=== PATIENT | female | born 1990 | race Caucasian/White ===

== ENCOUNTER → 2018-10-04 12:59 | Outpatient (CLI) | payer OTHER, SELFPAY ==
--- NOTE | 2018-10-04 13:01 | DI.US.S_ITS ---
ULTRASOUND OF LEFT BREAST: 10/04/2018 CLINICAL: Palp lump lt breast @2:00. No prior exams were available for comparison. Color flow and real-time ultrasound of the left breast were performed by both the senior account director and radiologist. Torres scale images of the real-time examination were reviewed. No abnormalities were seen sonographically in the left breast. Area of palpable concern at the 2:00 o'clock position correlated with a normal ridge of dense fibroglandular tissue. No mass or disturbed parenchymal echotexture. IMPRESSION: NEGATIVE There is no sonographic evidence of malignancy. There is no abnormality seen in the left breast to correspond with the area of clinical concern and palpable abnormality at 2 o'clock which is consistent with normal fibroglandular tissue. This exam was interpreted at Station ID: [id number]. SUMMARY: Findings and recommendations were discussed with the patient during today's visit. Recommend clinical follow up for persistent symptoms. Electronically Signed By: Immanuel Hayward M.D. at/:10/04/2018 18:26:33 letter sent: Normal Exam Ultrasound BI-RADS: 1 Negative
== END ==
PROVIDERS: Family Provider Specialist; PCP Family Medicine; Visit Provider Family Medicine
DX: N64.4 Mastodynia (principal); N63.21 Unspecified lump in the left breast, upper outer quadrant
CPT/HCPCS: 76642

== ENCOUNTER → 2018-10-13 13:49 | Outpatient (CLI) | payer OTHER, SELFPAY ==
--- NOTE | 2018-10-13 13:50 | DI.MG.S_ITS ---
UNILATERAL LEFT DIGITAL DIAGNOSTIC MAMMOGRAM 3D/2D: 10/13/2018 CLINICAL: Palpable left breast lump. Comparison is made to exam dated: 10/04/2018 [facility]. The tissue of left breast is heterogeneously dense. This may lower the sensitivity of mammography. No significant masses, calcifications, or other findings are seen in the left breast. IMPRESSION: NEGATIVE There is no abnormality seen in the left breast to correspond with the palpable abnormality at 2 o'clock in the anterior depth. Mammographic findings are consistent with normal fibroglandular tissue, however, clinical followup is recommended. An ultrasound for this abnormality has been performed recently and was also negative. There is no mammographic evidence of malignancy. Findings and recommendations were conveyed to the patient at time of exam. This exam was interpreted at Station ID: [id number]. NOTE: For mammograms, a report in lay terms will be sent to the patient. Approximately 15% of breast malignancies will not be visualized mammographically. In the management of a palpable breast mass, a negative mammogram must not discourage biopsy of a clinically suspicious lesion. Electronically Signed By: Annette velazco/:10/13/2018 14:42:13 letter sent: Clinical Evaluation ACR BI-RADS Category 1: Negative [id number]
== END ==
PROVIDERS: Family Provider Specialist; PCP Family Medicine; Visit Provider Family Medicine
DX: N63.21 Unspecified lump in the left breast, upper outer quadrant (principal)
CPT/HCPCS: 77065; G0279

== ENCOUNTER 2021-05-31 14:36 | Emergency (ER) | payer OTHER, SELFPAY ==
--- NOTE | 2021-05-31 15:18 | DI.RAD.S_ITS ---
PROCEDURE: XR HAND RT MIN 3V INDICATIONS: Injury TECHNIQUE: 3 views of the hand(s) acquired. COMPARISON: None. FINDINGS: Bones: No fractures or dislocations. Carpal bones are normally aligned. No suspicious bony lesions. Soft tissues: No suspicious soft tissue calcifications. IMPRESSION: No displaced fractures are seen on these plain films. If there is focal tenderness, or other clinical concern for a fracture not seen on these images in this patient with a given history of trauma, please consider a dedicated CT or a short-term followup plain film series (in 1-2 weeks) for further evaluation. Dictated by: Isaias Phillips M.D. on 05/31/2021 at 15:02 Approved by: Isaias Phillips M.D. on 05/31/2021 at 15:03
[2021-05-31 15:19] VITALS: BP 132/73; PULSE 90; RESP 18; TEMP 37.4; O2SAT 99
== END 2021-05-31 17:04 | disposition left against medical advice (07) ==
PROVIDERS: Emergency Provider Emergency Medicine; Family Provider Specialist; PCP Family Medicine
DX: Z53.21 Procedure and treatment not carried out due to patient leaving prior to being seen by health care provider (principal)
CPT/HCPCS: 73130; 99283

== ENCOUNTER 2023-02-22 06:38 | Day surgery (SDC) | payer OTHER, SELFPAY ==
[2023-02-16 16:50] VITALS: BMI 25.3
--- NOTE | 2023-02-22 | PATH_ITS ---
[facility] Accession Number: [id number] No. of containers..01 Tissue . 01 Material submitted: . fallopian tube - BILATERAL FALLOPIAN TUBES . 01 Diagnosis: Bilateral Fallopian Tubes, Bilateral Salpingectomy: Bilateral fallopian tubes without pathologic abnormalities. Negative for atypia and malignancy. [facility] 02/25/2023 1421 Local . 01 Electronically signed: . Mian Rangel MD, Pathologist NPI- [id number] . 01 Gross description: . The specimen is received in formalin labeled with the patient's name, , and bilateral fallopian tubes, consists of two unoriented fimbriated fallopian tubes measuring 6.4 x 0.4 cm and 5.8 x 0.5 cm, respectively. Both tubes have violaceous smooth serosa with no cystic structures identified. Sectioning reveals an unremarkable stellate lumen. Technical Services Librarian sections to include one-half of bisected fimbriae and cross-sections are submitted in two blocks, A1-A2. ([id number]) /[facility] 02/25/2023 1413 Local . 01 Pathologist provided ICD-10: Z30.2, Z30.432 . 01 CPT . 307310 Specimen Comment: A courtesy copy of this report has been sent to [phone] Performed at: 01 [facility] [address] [place] [address], [place], [place] [id number] MD Reinier Rivera MD Phone: [phone]
--- NOTE | 2023-02-22 07:09 | P.HPOB_ITS ---
History of Present Illness History of Present Illness Reason for admission: other (Sterilization) Narrative: Tahira Stewart is a 32 year old 3 para 1 admitted for laparoscopic bilateral salpingectomies for sterilization and removal of Mirena IUD. Patient is aware of all control options and is requesting bilateral salpingectomies for permanent sterilization and removal of Mirena IUD. [facility] Medical History (Updated 02/22/23 @ 07:10 by Radha Ayala MD) Anemia Delivery by section of full-term Gestational hypertension w/o significant proteinuria in 3rd trimester History of gestational hypertension Surgical History (Updated 01/14/18 @ 21:25 by Leslie Hodge) Anesthesia History of third molar tooth extraction History of tonsillectomy (~1994) Status post delivery (10/23/15) Family History (Updated 01/14/18 @ 21:27 by Leslie Hodge) Father Hypertension Mother Hypertension Lupus Grandmother Diabetes mellitus Hypertension Social History marital status: household members: spouse pets and animals: Yes education level: high school seatbelt use: always helmet use: Yes water heater temp set < 120 deg: Yes working smoke detector in home: Yes fire extinguisher in home: Yes carbon monox detector in home: Yes firearms in home: No Smoking Status: Never smoker alcohol intake: current during the past year weight has: remained stable well-balanced diet: daily or most days daily servings fruits/ve-4 eating out: rarely or never Type(s) of exercise: walking, swimming and additional frequency: daily Meds Home Medications and Allergies Home Medications Medication Instructions Recorded Confirmed Type levonorgestrel 21 mcg/24 hours (8 intrauterine 08/16/20 10/21/22 History yrs) 52 mg intrauterine device (Mirena) Allergies Allergy/AdvReac Type Severity Reaction Status Date / Time shellfish derived Allergy Unknown facial/tongue Verified 10/21/22 10:34 [SHELLFISH DERIVED] swelling Review of Systems Review of Systems ROS: Yes All systems reviewed with the patient and are negative except as otherwise documented Exam Narrative Exam Narrative: HEENT exam within normal limits. Lungs are clear to auscultation percussion. Heart is regular rate and rhythm no S3-S4 murmurs. Abdomen is soft, nontender with no palpable organomegaly. Extremities without edema and nontender Assessment & Plan Assessment and plan (1) Encounter for sterilization: Status: Acute Assessment & Plan narrative: Patient requesting laparoscopic bilateral salpingectomy for sterilization with removal Mirena IUD. Consent form signed. Risks of reaction to medication or anesthesia, minimal risk of infection or bleeding, minimal risk of damage to internal structures such as bowel, bladder, ureters that could require opening the abdomen to repair or additional surgery. Patient is aware she will no longer be able to have children after this procedure. Consent form signed and questions answered. Time Spent With Patient Time with patient: less than 30 minutes
[2023-02-22 07:18] VITALS: BP 116/72; PULSE 72; RESP 16; TEMP 36.6; O2SAT 98; BMI 25.3
[2023-02-22] MEDS: LACTATED RINGERS 1,000 ML 100 ML IV (07:24)
[2023-02-22] MEDS: SCOPOLAMINE 1 PATCH TOP (07:27)
--- NOTE | 2023-02-22 07:31 | PM.PREOP ---
Pre-operative Note Interval Note History & Physical reviewed/Exam performed by Physician: Yes Changes to H&P: No
--- NOTE | 2023-02-22 08:11 | SUR.OPER ---
Lithotomy on padded OR bed, head on pillow, arms secured on padded arm boards at <90 degrees abduction. Legs secured in padded yellow fins stirrups.
[2023-02-22] MEDS: BUPIVACAINE 0.5% (PF) 30 ML, EPINEPHrine 0.15 MG INJ (08:16)
[2023-02-22] MEDS: ACETAMINOPHEN IV 1,000 MG/100 ML VIAL 400 MG IV (08:23)
[2023-02-22 08:35] VITALS: BP 141/70; PULSE 74; RESP 14; TEMP 36.3; O2SAT 98
[2023-02-22 08:40] VITALS: BP 123/74; PULSE 91; RESP 14; O2SAT 97
[2023-02-22 08:45] VITALS: BP 129/63; PULSE 67; RESP 15; TEMP 36.3; O2SAT 99
--- NOTE | 2023-02-22 08:47 | PM.OP.1 ---
Operative Date/Time/Diagnoses Date of procedure: 02/22/23 Time of procedure: 08:47 Pre-op diagnosis: Undesired fertility with Mirena IUD in place Post-op diagnosis: same Procedure & Clinicians Procedure: Laparoscopic bilateral salpingectomy with removal Mirena IUD Same procedure as scheduled: Yes Indications: Undesired fertility Surgeon: Radha Ayala Systems Integration Engineer: Margi Tom Anesthesia Type: General Operative Notes Findings: Normal tubes, ovaries, uterus. Normal bowel surface and appendix. Normal liver edge and gallbladder dome. No endometriosis. No internal hernias. No scar tissue. Closure Type: primary Specimen(s): other (Bilateral fallopian tubes) Estimated Blood Loss (mL): 2 Blood products transfused: none Procedure in detail: Patient was brought to the operating room where she underwent general anesthesia. She was placed in low yellowfin stirrups and prepped and draped in usual sterile fashion. Pulsatile stockings were in place and functional. Warming was with blankets. A single-tooth tenaculum was placed on the anterior lip of the cervix and the cervix dilated to #6 Hegar dilator. The Zumi uterine manipulator was placed and balloon inflated with 3 mL of air. The area of the incisions were injected with half percent Marcaine with epinephrine. An incision was made in the umbilicus with a scalpel and the Verres needle placed in the abdomen. Confirmation of correct placement of the needle was performed by withdrawing on the syringe and then allowing fluid to fall freely through the needle. The abdomen was insufflated to 3 L of CO2. A 5 mm trocar was placed under direct visualization. 2 other 5 mm trochars were placed in the right and left lower quadrant under direct visualization after incising the skin. There did not appear to be any damage with placement of the trocars. The right fallopian tube was grasped and removed by cauterizing and cutting the mesosalpinx and across the fallopian tube at the junction with the uterus with the power soon. Same procedure was performed on the left fallopian tube. The tubes were brought up out of the abdomen. Adequate hemostasis was noted. The CO2 was allowed to escape from the abdomen. The trochars were removed. Skin was closed with 4-0 monocryl. The patient went to recovery room in good condition. Complications: none Post-operative Condition: stable Disposition: same day surgery Plan for aftercare: Home when awake and stable. Follow-up in 2 weeks.
[2023-02-22 08:51] VITALS: BP 120/62; PULSE 77; RESP 17; O2SAT 98
[2023-02-22 09:15] VITALS: BP 116/72; PULSE 76; RESP 16; TEMP 36.6; O2SAT 99
[2023-02-22] MEDS: OXYCODONE IR 5 MG TABLET PO (09:17)
== END 2023-02-22 09:20 | disposition home or self-care (01) ==
PROVIDERS: Family Provider Specialist; PCP Family Medicine; Referring Provider Obstetrics & Gynecology; Visit Provider Obstetrics & Gynecology
PROC: (CPT 58661; principal; 2023-02-22 07:45)
DX: Z30.2 Encounter for sterilization (principal); Z30.432 Encounter for removal of intrauterine contraceptive device
CPT/HCPCS: 58661; 58301; 81025; J0131; J0171; J1100; J1885; J2250; J2405; J2704; J3010

== ENCOUNTER 2024-12-30 23:15 | Emergency (ER) | payer OTHER, SELFPAY ==
[2024-12-30 23:22] VITALS: BP 141/81; PULSE 78; RESP 22; TEMP 36.6; O2SAT 98; BMI 25.0
--- NOTE | 2024-12-30 23:25 | DI.RAD.S_ITS ---
PROCEDURE: XR SHOULDER LT MIN 2V INDICATIONS: fall TECHNIQUE: 2 views of the shoulder were acquired. COMPARISON: None. FINDINGS: Bones: Fracture of the left humeral midshaft. Please see dedicated left humerus radiographic series for further details. Glenohumeral and acromioclavicular joints are maintained. Coracoclavicular and acromioclavicular intervals are maintained. Soft tissues: No suspicious soft tissue calcifications. IMPRESSION: Left acromioclavicular and glenohumeral joints are maintained. Left humeral midshaft fracture. Dictated by: Immanuel Hayward M.D. on 12/31/2024 at 0:54 Approved by: Immanuel Hayward M.D. on 12/31/2024 at 0:55
--- NOTE | 2024-12-30 23:25 | DI.RAD.S_ITS ---
PROCEDURE: XR HUMERUS LT 2V INDICATIONS: fall TECHNIQUE: AP and lateral views of the humerus were acquired. COMPARISON: None. FINDINGS: Bones: Transverse oriented fracture of the left mid humeral diaphysis with full shaft width of medial displacement as well as mild foreshortening of the distal fracture fragment of approximately 8 mm. Remainder of the visualized osseous structures appear intact. Soft tissues: No suspicious soft tissue calcifications. IMPRESSION: Displaced, transverse fracture of the left mid humeral shaft. Dictated by: Immanuel Hayward M.D. on 12/31/2024 at 0:52 Approved by: Immanuel Hayward M.D. on 12/31/2024 at 0:53
[2024-12-30] MEDS: ONDANSETRON 4 MG/2 ML INJ IV (23:42)
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
--- NOTE | 2024-12-31 02:30 | PC.NURSE ---
Assisted pt to shower, significant other and pt set up with Hibiclens, towels, and disposible scrubs at this time. Pt will return to room for medications and then splinting.
[2024-12-31 02:52] VITALS: BP 123/67; PULSE 71; RESP 20; O2SAT 99
[2024-12-31 03:00] VITALS: BP 122/69; PULSE 73; O2SAT 97
[2024-12-31 03:30] VITALS: BP 122/72; PULSE 67; O2SAT 98
[2024-12-31] MEDS: HYDROCODONE/ACET 5/325 PREPACK 1 BOTTLE MISC (03:57)
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
== END 2024-12-31 04:21 | disposition home or self-care (01) ==
PROVIDERS: Emergency Provider Emergency Medicine; Family Provider Specialist; PCP Family Medicine
DX: S42.322A Displaced transverse fracture of shaft of humerus, left arm, initial encounter for closed fracture (principal); R07.89 Other chest pain; V86.95XA Unspecified occupant of 3- or 4- wheeled all-terrain vehicle (ATV) injured in nontraffic accident, initial encounter
CPT/HCPCS: 36415; 71045; 73030; 73060; 96374; 96375; 96376; 99284; J1171; J2405; J3360

== ENCOUNTER 2025-01-03 08:21 | Day surgery (SDC) | payer OTHER, SELFPAY ==
[2025-01-03] VITALS (10 sets, daily range): BP systolic 107–133; BP diastolic 55–76; PULSE 52–71; RESP 12–26; TEMP 36.3–36.9; O2SAT 91–98; BMI 24.3
--- NOTE | 2025-01-03 | DI.RAD.S_ITS ---
PROCEDURE: XR HUMERUS LT 2V INDICATIONS: POST OP ORIF LEFT HUMERUS TECHNIQUE: 2 views of the humerus were acquired. COMPARISON: Located Within [facility], , XR HUMERUS LT 2V, 01/03/2025, 11:09. FINDINGS: Bones: Transverse fracture mid humeral diaphysis has been reduced to anatomic alignment and transfixed by medial plate and screws. Joints: The joint spaces are normal in width and alignment without arthritic change. Soft tissues: No soft tissue abnormality. IMPRESSION: ORIF mid humeral diaphyseal fracture anatomic alignment Dictated by: Mir Espinoza M.D. on 01/04/2025 at 11:08 Approved by: Mir Espinoza M.D. on 01/04/2025 at 11:08
--- NOTE | 2025-01-03 | DI.RAD.S_ITS ---
PROCEDURE: XR HUMERUS LT 2V INDICATIONS: ORIF LEFT HUMERUS TECHNIQUE: 2 views of the humerus were acquired. COMPARISON: [facility], , XR HUMERUS LT 2V, 12/31/2024, 0:07. FINDINGS: Bones: Transverse mid humeral diaphyseal fracture is reduced anatomic alignment and transfixed by plate and screws Joints: No joint space are visualized on these 2 single digital images of the mid humerus Soft tissues: No soft tissue abnormality. IMPRESSION: ORIF mid humeral fracture- anatomic alignment Dictated by: Mir Espinoza M.D. on 01/04/2025 at 10:57 Approved by: Mir Espinoza M.D. on 01/04/2025 at 10:57
[2025-01-03] MEDS: LACTATED RINGERS 1,000 ML 42 ML IV ×2 (09:10→12:09)
[2025-01-03] MEDS: CELECOXIB 200 MG CAPSULE PO (09:15)
[2025-01-03] MEDS: ACETAMINOPHEN 325 MG TABLET 975 MG PO (09:15)
[2025-01-03] MEDS: FAMOTIDINE 20 MG/2 ML VIAL IV (09:16)
[2025-01-03] MEDS: GABAPENTIN 300 MG CAPSULE PO (09:16)
[2025-01-03] MEDS: SCOPOLAMINE 1 PATCH TOP (09:17)
--- NOTE | 2025-01-03 09:27 | PM.PREOP ---
Pre-operative Note COVID-19 COVID-19 status: Not tested Interval Note History & Physical reviewed/Exam performed by Physician: Yes Changes to H&P: No
[2025-01-03] MEDS: CEFAZOLIN 2 GM/100 ML PREMIX 100 ML IV (10:12)
--- NOTE | 2025-01-03 10:35 | SUR.OPER ---
Supine on padded OR bed, head on pillow, right arm secured on padded arm board at <90 degrees abduction, left arm on hand table, legs uncrossed, safety belt at thigh, tape over blanket over lower legs.
[2025-01-03] MEDS: BUPIVACAINE 0.25% (PF) VIAL 30 ML INJ (11:26)
[2025-01-03] MEDS: ONDANSETRON 4 MG/2 ML INJ IV (12:00)
[2025-01-03] MEDS: HYDROMORPHONE 1 MG INJ IV ×2 (12:03→12:14)
--- NOTE | 2025-01-03 12:04 | PM.OP.1 ---
Operative Date/Time/Diagnoses Date of procedure: 01/03/25 Time of procedure: 10:28 Pre-op diagnosis: LEFT HUMERAL SHAFT FRACTURE - DISPLACED Post-op diagnosis: same Procedure & Clinicians Procedure: ORIF LEFT HUMERAL SHAFT FRACTURE Same procedure(s) as scheduled: Yes Surgeon: Maria Luisa Morrow Captain Waiter/Waitress: Maine Grier Anesthesia Type: General Operative Notes Findings: SEE BELOW Closure Type: primary Specimen(s): none sent Applied: none Estimated Blood Loss (mL): 25 Blood products transfused: none Procedure in detail: Preop diagnosis:? DISPLACED LEFT HUMERAL SHAFT FRACTURE Postoperative diagnosis: ?same as above Procedure performed: 1) LEFT HUMERUS OPEN REDUCTION INTERNAL FIXATION Surgeon Maria Luisa Steward DO Captain Waiter/Waitress Surgeon Arun Lane MD Captain Waiter/Waitress: Vee Palm PA-C Indications for surgery please see preoperative H&P Total estimated blood loss: 25cc Implants: 1) [employer] 3.5 MM COMPRESSION PLATE plate 2) 6 3.5 mm cortical screws Procedure in detail: The patient was met in the preoperative holding area her left upper extremity was signed is correct extremity. ?She was taken back to the operating room and placed in supine position. All bony prominences were padded. ?The patient was prepped and draped in standard sterile fashion. A timeout was performed confirming the correct patient correct extremity initials on the operative site and administration of IV antibiotics. A 10 cm incision was made at the anterolateral aspect of the biceps and proximally a deltopectoral interval was utilized.? Dissection was taken down through the subcutaneous tissue.? The biceps was retracted medially.? The brachialis was identified and split.? The fracture site was identified and cleared of debris.? The fracture ends were reduced.? An appropriate size plate was utilized.? Fracture reduction and implant placement was confirmed fluoroscopic imaging.? The 3.5 mm compression plate was placed in compression mode and a total of 6 screws were placed the fracture reduction and implant were confirmed with fluoroscopy.? ? THe wound was copiously irrigated and closed in layered fashion with 2-0 vicryl and 3-0 Monocryl. A sterile dressing was applied consisting of Steri-Strips, xeroform, plain gauze and an Medipore tape. The patient was awoken in stable condition. All counts were correct at the end of the case. There were no complications. An radiology physician assistant was utilized for positioning, exposure, fracture reduction, implant placement and closure. Complications: none
[2025-01-03] MEDS: OXYCODONE IR 5 MG TABLET PO ×2 (12:08→12:41)
== END 2025-01-03 14:25 | disposition home or self-care (01) ==
PROVIDERS: PCP Family Medicine; Referring Provider Orthopaedic Surgery; Visit Provider Orthopaedic Surgery
PROC: (CPT 24515; principal; 2025-01-03 10:00)
DX: S42.322A Displaced transverse fracture of shaft of humerus, left arm, initial encounter for closed fracture (principal); V86.99XA Unspecified occupant of other special all-terrain or other off-road motor vehicle injured in nontraffic accident, initial encounter; F17.210 Nicotine dependence, cigarettes, uncomplicated; G89.18 Other acute postprocedural pain
CPT/HCPCS: 24515; 64450; 73060; 76000; C1713; J0690; J1100; J1171; J1885; J2405; J2704; J3010; J3490